=== PATIENT | female | born 1965 | race Caucasian/White ===

== ENCOUNTER 2017-03-25 08:21 | Emergency (ER) | payer MEDICARE, MEDICAID ==
--- NOTE | 2017-03-27 13:14 | ER ---
ADMIT: 03/25/2017 RM/LOC: ER [facility] MR#: [id number] [facility] [id number] [place] [id number] MAURICIO CABALLERO [address] [address] Emergency Room Report SEX: F AGE: 52 : 1965 DATE: 03/25/2017 HISTORY OF PRESENT ILLNESS: The patient is a 52-year-old female with a past medical history of chronic back pain, anxiety, hypothyroidism, and bipolar, who came to the ER with chief complaint of hyperventilation, feeling anxious, swelling, numbness, and tingling in the fingers bilaterally, and also complains of chronic back pain. The patient has similar episodes in the past with anxiety, also states that because of hyperventilation, she has difficulty breathing, the patient has albuterol nebulizer at home. PHYSICAL EXAMINATION: VITAL SIGNS: In the ER, the patient was hyperventilating, was afebrile, heart rate was 97, blood pressure was 130/80. GENERAL: The patient was in moderate distress and was anxious. The patient was mildly shaking. There is no apparent trauma in the body. HEAD: Normal. NECK: Trachea midline, and thyroid palpation was also normal. CHEST: Clear bilaterally. ABDOMEN: The patient has soft abdomen. EXTREMITIES: The patient has some tremor in extremities which changes during time. Gait is normal. The rest of the physical exam is noncontributory. With the diagnoses of anxiety and acute on chronic back pain, the patient received Ativan 1 mg p.o., and Percocet p.o. The patient received breathing treatment. The patient was signed out to the next shift to follow up on the patient, and the resolution of symptoms. Glen Caba MD/ edmond JOB #: [id number] CC: Glen Caba MD, Attending Physician UNKNOWN, Family Physician
== END 2017-03-25 09:46 | disposition home or self-care (01) ==
LOC: ER 08:21
DX: F41.9 Anxiety disorder, unspecified (principal); G89.29 Other chronic pain; M54.5 Low back pain; E03.9 Hypothyroidism, unspecified; F31.9 Bipolar disorder, unspecified; Z98.890 Other specified postprocedural states